=== PATIENT | female | born 1980 | race Caucasian/White ===

== ENCOUNTER → 2016-11-04 | Outpatient (CLI) | payer BC ==
[2016-11-04 11:25] LABS: Basophils % (A) 0 %; CHCM 34.1; Eosinophils # (A) 0.2 k/uL (0-0.7); Eosinophils % (A) 3 %; HCT 39.1 % (34.0-46.0); HDW 2.59; HGB 13.1 gm/dL (11.4-16.0); Luc # (Auto) 0.06; Luc % (Auto) 1; Lymphocytes # (A) 1.4 k/uL (1.0-4.8); Lymphocytes % (A) 25 %; MCH 27.6 pg (25.0-35.0); MCHC 33.4 g/dL (31.0-37.0); MCV 82.6 fL (80.0-100.0); Mean Platelet Volume 8.6; Monocytes # (A) 0.3 k/uL (0-1.0); Monocytes % (A) 6 %; Neutrophils # (A) 3.8 k/uL (1.3-7.7); Neutrophils % (A) 66 %; RBC 4.74 m/uL (3.80-5.40); RDW 14.1 % (11.5-15.5); WBC 5.7 k/uL (3.8-10.6); WBC (Perox) 5.71
[2016-11-04 11:40] LABS: ALT 25 U/L (9-52); AST 17 U/L (14-36); Alkaline Phosphatase 41 U/L (38-126); Anion Gap 11 mmol/L; Blood Urea Nitrogen 14 mg/dL (7-17); Calcium 9.7 mg/dL (8.4-10.2); Carbon Dioxide 27 mmol/L (22-30); Chloride 103 mmol/L (98-107); Cholesterol 176 mg/dL (<200); Glucose 94 mg/dL (74-99); HDL Cholesterol 100 mg/dL (40-60); Non-African American GFR(MDRD) >60 (>60 ml/min/1.73 sqM); Potassium 4.8 mmol/L (3.5-5.1); Sodium 141 mmol/L (137-145); Total Bilirubin 0.4 mg/dL (0.2-1.3); Total Protein 7.4 g/dL (6.3-8.2)
== END | disposition home or self-care (01) ==
LOC: LABWHC1 11:03
PROVIDERS: ATTEND Family Medicine
DX: Z00.00 Encounter for general adult medical examination without abnormal findings (principal)
CPT/HCPCS: 36415; 80053; 80061; 82306; 84443; 85025

== ENCOUNTER → 2018-03-01 | Outpatient (CLI) | payer BC ==
[2018-03-01 15:43] LABS: Basophils % (A) 0 %; Eosinophils # (A) 0.1 k/uL (0-0.7); Eosinophils % (A) 2 %; HCT 35.6 % (34.0-46.0); HGB 11.6 gm/dL (11.4-16.0); Lymphocytes % (A) 18 %; MCH 26.7 pg (25.0-35.0); MCHC 32.5 g/dL (31.0-37.0); MCV 82.2 fL (80.0-100.0); Mean Platelet Volume 7.5; Monocytes # (A) 0.3 k/uL (0-1.0); Monocytes % (A) 6 %; Neutrophils # (A) 3.9 k/uL (1.3-7.7); Neutrophils % (A) 72 %; Platelet Count 222 k/uL (150-450); RBC 4.33 m/uL (3.80-5.40); RDW 13.3 % (11.5-15.5); WBC 5.5 k/uL (3.8-10.6)
[2018-03-01 15:58] LABS: Anion Gap 7 mmol/L; Blood Urea Nitrogen 19 mg/dL (7-17); Carbon Dioxide 24 mmol/L (22-30); Chloride 109 mmol/L (98-107); Glucose 92 mg/dL (74-99); Potassium 4.7 mmol/L (3.5-5.1); Sodium 140 mmol/L (137-145)
== END ==
LOC: LABPAT 14:51
PROVIDERS: ATTEND Obstetrics & Gynecology Obstetrics
DX: Z01.812 Encounter for preprocedural laboratory examination (principal); N92.0 Excessive and frequent menstruation with regular cycle; N94.6 Dysmenorrhea, unspecified
CPT/HCPCS: 36415; 80051; 82565; 82947; 84520; 85025; 86850; 86900; 86901; 87086

== ENCOUNTER 2018-03-09 06:12 | Day surgery (SDC) | payer BC ==
--- NOTE | 2018-03-04 17:02 | HP ---
HISTORY AND PHYSICAL DATE OF SURGERY: 03/09/2018 This is a 37-year-old 1, para 2 with known history of menorrhagia, progressive dysmenorrhea and failed medical treatment. PAST MEDICAL HISTORY: None. PAST SURGICAL HISTORY: None. MEDICATIONS: She is on a [place] vitamin. ALLERGY LIST: NO KNOWN DRUG ALLERGIES. FAMILY HISTORY: Noncontributory. 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 As stated above, she is a G1, P2 with a twin vaginal delivery in 2004. She states her menstrual cycles are slightly irregular. They are every month, but occasionally she will skip up to 2 months. They do last 3 days and are heavy in nature, and she reports dysmenorrhea associated with her cycles. She is sexually active with one partner and using a vasectomy for contraception. REVIEW OF SYSTEMS: She denies fevers, chills or body aches. She denies history of prior headaches. She denies nausea, vomiting, diarrhea, constipation. Genitourinary: She notes slightly irregular menses, heavy in nature, with clots and dysmenorrhea that is worsening. She denies urinary urgency, frequency or dysuria. She denies history of anxiety or depression. PHYSICAL EXAMINATION: In general, this is a well-nourished, well-developed, alert female in no acute distress. Her head is noted to be normocephalic, atraumatic. Her lungs are noted to be clear to auscultation bilaterally. CARDIOVASCULAR: Regular rate and rhythm. Her abdominal exam is nontender to palpation with no masses. GENITOURINARY: She has external genitalia that are normal in appearance for age. Vagina has no discharge. The bladder is nontender. The uterus is normal in size. Her recent Pap was negative, with negative HPV in addition. ASSESSMENT: 1. Menorrhagia. 2. Dysmenorrhea. PLAN: The patient is counseled on options for treatments, given she has failed medical treatment with oral contraceptive pills. She wishes definitive treatment with hysterectomy and ovarian conservation. Risks were reviewed in detail, including but not limited to infection, bleeding, damage to bladder, bowel, ureteric or other pelvic structures. The patient states understanding of these risks and wishes to proceed. The patient is scheduled for robotic-assisted vaginal hysterectomy with diagnostic cystoscopy, possible open procedure to complete procedure, on March 09. MMODL / IJN: [id number] /
[2018-03-05 13:38] VITALS: BMI 23.0
[~2018-03-09 06:12] MED LIST: ACETAMINOPHEN IV (For NPO) 100 ML IVPB ONE; ceFAZolin IN SWFI 2 GM/20 ML SYRINGE IVP ONE
[2018-03-09] MEDS ORDERED: LIDOCAINE 1% 20 ML VIAL (10MG/ML) FOR IV START INTRADERMA ONE (06:45)
[2018-03-09] MEDS ORDERED: HYDROmorphone 0.5 MG/0.5 ML SYRINGE IVP PRN (06:47)
[2018-03-09] MEDS ORDERED: DEXAMETHASONE SOD PHOSPHATE 10 MG/ML 1 ML VIAL IV ONE (06:47)
[2018-03-09] MEDS ORDERED: ONDANSETRON 4 MG/2 ML VIAL IVP ONE (06:47)
[2018-03-09] MEDS ORDERED: LIDOCAINE 1% 20 ML VIAL (10MG/ML) FOR IV START INTRADERMA PRN (06:47)
[2018-03-09] MEDS ORDERED: SCOPOLAMINE 1.5MG/72HR PATCH TRANSDERM ONE (06:47)
[2018-03-09] MEDS ORDERED: LACTATED RINGERS 1,000 ML IV SCH (07:00)
[2018-03-09] MEDS ORDERED: LACTATED RINGERS 1,000 ML IV ONE ×3 (07:01→10:32)
[2018-03-09] MEDS ORDERED: Acetaminophen-Codeine 300-30mg TAB PO PRN ×2 (07:39)
[2018-03-09] MEDS ORDERED: ONDANSETRON 4 MG/2 ML VIAL IVP PRN (07:39)
[2018-03-09] MEDS ORDERED: IBUPROFEN IV 800 MG in SODIUM CHLORIDE 0.9% 250 ML IV ONE (07:41)
[2018-03-09] MEDS ORDERED: GLYCOPYRROLATE 0.2 MG/ML 2 ML VIAL ONE (07:46)
[2018-03-09] MEDS ORDERED: NEOSTIGMINE 1 MG/ML 10 ML VIAL ONE (07:46)
[2018-03-09] MEDS ORDERED: fentaNYL (PF) 50 MCG/ML 2 ML AMP ONE (07:46)
[2018-03-09] MEDS ORDERED: PROPOFOL 10 MG/ML 20 ML VIAL IV ONE (07:46)
[2018-03-09] MEDS ORDERED: SUCCINYLCHOLINE CHLORIDE 100 MG/5 ML SYR IV ONE (07:46)
[2018-03-09] MEDS ORDERED: ROCURONIUM BROMIDE 10 MG/ML 10 ML VIAL IV ONE (07:46)
[2018-03-09] MEDS ORDERED: HYDROmorphone (PF) 1 MG/ML ONE (07:46)
[2018-03-09] MEDS ORDERED: PHENYLEPHRINE-0.9% NACL SYG 1 MG/10 ML SYRINGE ONE (07:46)
[2018-03-09] MEDS ORDERED: MIDAZOLAM 2 MG/2 ML VIAL ONE (07:46)
[2018-03-09] MEDS ORDERED: LIDOCAINE 1% INJ 10MG/ML (20 ML MDV) ONE (07:46)
[2018-03-09] MEDS ORDERED: BUPIVACAINE (PF) 0.25% 30 ML VIAL SQ ONE ×2 (08:26)
--- NOTE | 2018-03-09 09:59 | P.OP ---
Date of Procedure: 03/09/18 Preoperative Diagnosis: Menorrhagia, dysmenorrhea, failed medical treatment. Postoperative Diagnosis: Same Procedure(s) Performed: Robotic cyst vaginal hysterectomy, diagnostic cystoscopy Anesthesia: ARINAA Surgeon: Lissette Cummings Mechatronics Technologist #1: Ange Malagon Estimated Blood Loss (ml): 25 IV fluids (ml): 1,200 Urine output (ml): 100 Pathology: other (Uterus) Condition: stable Disposition: PACU Indications for Procedure: Menorrhagia, dysmenorrhea failed medical treatment Operative Findings: Bulky globular uterus normal ovaries bilaterally suspicion for endometriosis with pelvic scarring noted Description of Procedure: Patient was seen in the preoperative area and informed consent was obtained once again the risks were reviewed with patient including but not limited to infection, bleeding, damage to bladder, bowel, ureteric, other pelvic structures. The risks of open surgery were discussed in addition. All questions were answered patient stated understanding and wished to proceed. Patient was seen in the operating suite where general anesthesia was obtained without difficulty by the anesthesia department. She was then prepped and draped in the normal sterile fashion in the dorsal lithotomy position. A Mahan catheter was then placed under sterile technique. A weighted speculum was placed in the posterior vaginal vault and the anterior lip of the cervix is visualized and grasped with a single-tooth tenaculum. The endocervical canal was then dilated and the uterus then sounded to 9 cm of uterine manipulator was then advanced into the uterus as a means to manipulate the uterus throughout the procedure. The cervical cap was then placed snugly against the cervix. All instruments were then removed from the patient's vaginal vault. Attention was then turned to the patient's abdomen where approximately 2 fingerbreadths above the umbilicus a small skin incision is made through this incision the naresis using it was deemed appropriate position with a drop of CO2 pressure and the insufflation of CO2 gas CO2 insufflation was allowed to occur. Approximately 3 L of gas were used to obtain pneumoperitoneum. At this time the incision was elongated 12 mm and a 12 mm trocar and sleeve is placed through the incision and toward the pneumoperitoneum under direct visualization of the laparoscope. The trocar was removed with the sheath remaining in place and the above noted findings were visualized. The additional port sites and then placed a 10 cm lateral and 3 cm inferior midline port 8 mm operative ports that she machine. In the left upper quadrant a 12 mm trocar and sleeve is placed under direct visualization. The da Mechelle was undocked in the usual fashion. The operative arms were now placed. In the right upper The monopolar scissors was placed in the left operative arm the bipolar forceps is placed left fallopian tube was then grasped coagulated and transected. The uterine ovarian ligament was regular distally and proximally divided hemostasis was noted. The round ligament was then coagulated distally and proximally divided. The bladder flap was then created from the left using sharp and blunt dissection. Attention was then turned to the patient's right fallopian tube which was grasped with the bipolar forceps and transected with good hemostasis being noted. Utero-ovarian ligament was greater than distally and proximally and divided. The round ligament was then coagulated distally and proximally and divided. The bladder flap from the right was then created using sharp and blunt dissection. The ascending branch the uterine artery was then visualized coagulated distally and proximally and divided. This was then repeated on the opposite side. At this point the only remaining attachment was the vaginal attachment therefore a colpotomy incision was made in a circumferential fashion. The vaginal cuff was noted to be hemostatic after the uterus was delivered through the vaginal opening. The vaginal cuff was then closed with [id number] sutures of 0 Vicryl. Approximately 5 sutures were used to obtain closure. The pelvis then copiously irrigated hemostasis was appreciated. The pelvis was inspected and normal in nature. The appendix was visualized and normal. Both ovaries were inspected and normal-appearing once again with no bleeding noted. At this time the da Mechelle robot was undocked and all instructed to remove the patient's abdomen. Attention was then turned the patient's Mahan catheter which was removed without difficulty noting clear yellow urine in the catheter tubing. The cystoscopy was then performed. The scope was placed through the urethra for the bladder bladder bubbles noted both urolithiasis were noted recently clear yellow urine. Mahan catheter was then replaced. Attention was then turned the patient's abdomen where the skin incisions were closed with 4-0 Vicryl in a subcuticular fashion. Steri-Strips and sterile dressings were applied as needed. All counts are correct 2 patient tolerated procedure well and was taken to the recovery room awake and in stable condition.
[2018-03-09] MEDS ORDERED: MEPERIDINE 50 MG/ML SYRINGE IVP ONE (10:28)
[2018-03-09] MEDS: IBUPROFEN 600 MG TAB PO PRN (19:49)
[2018-03-10] MEDS: IBUPROFEN 600 MG TAB PO PRN (03:20)
[2018-03-10 07:56] VITALS: BP 96/54; PULSE 61; RESP 14; TEMP 97.8
[2018-03-10 08:04] LABS: Basophils % (A) 0 %; Eosinophils # (A) 0.1 k/uL (0-0.7); Eosinophils % (A) 1 %; HCT 31.7 % (34.0-46.0); HGB 10.5 gm/dL (11.4-16.0); Lymphocytes # (A) 1.1 k/uL (1.0-4.8); Lymphocytes % (A) 12 %; MCH 27.3 pg (25.0-35.0); MCHC 33.1 g/dL (31.0-37.0); MCV 82.5 fL (80.0-100.0); Mean Platelet Volume 8.4; Monocytes # (A) 0.4 k/uL (0-1.0); Monocytes % (A) 5 %; Neutrophils # (A) 7.5 k/uL (1.3-7.7); Neutrophils % (A) 82 %; Platelet Count 181 k/uL (150-450); RBC 3.84 m/uL (3.80-5.40); RDW 13.8 % (11.5-15.5); WBC 9.1 k/uL (3.8-10.6)
--- NOTE | 2018-03-10 08:32 | P.DS ---
Providers Date of admission: 03/09/2018 Expected date of discharge: 03/10/18 Attending physician: Lissette Cummings Primary care physician: Stated None - Discharge Diagnosis(es) (1) Dysmenorrhea Current Visit: Yes Status: Acute (2) Menorrhagia Current Visit: Yes Status: Acute Hospital Course: This is a 38-year-old female with complaints of severe dysmenorrhea, menorrhagia despite medical treatment. Patient wishes definitive treatment and given her significant dysmenorrhea options were reviewed and patient elected definitive treatment with robotic-assisted vaginal hysterectomy, patient was taken to the operating room yesterday surgery was performed without difficulty. For further details on the procedure please see the operative report. Patient 's postoperative course has been uneventful. She is ambulating and voiding without difficulty. She is tolerating a regular diet without nausea or vomiting. She states her pain is well-controlled with Motrin 600 mg. She denies vaginal bleeding and wishes discharge home. Patient Condition at Discharge: Good Plan - Discharge Summary Discharge Rx Participant: No New Discharge Prescriptions: No Action Ibuprofen [Motrin] 800 mg PO Q8HR PRN PRN Reason: Pain Pedi Multivit No.25/Folic Acid [Flintstones Multivit Chew Tab] 2 tab PO DAILY Acetaminophen [Children's Tylenol] 160 mg PO DIRECTED PRN PRN Reason: Pain Discharge Medication List Acetaminophen [Children's Tylenol] 160 mg PO DIRECTED PRN 03/05/18 [History] Ibuprofen [Motrin] 800 mg PO Q8HR PRN 03/05/18 [History] Pedi Multivit No.25/Folic Acid [Flintstones Multivit Chew Tab] 2 tab PO DAILY [History] Follow up Appointment(s)/Referral(s): Lissette Cummings DO [Doctor of Osteopathic Medicine] - 2 Weeks Patient Instructions/Handouts: *Surgery [facility] - Scopalamine Patch Instructions, Laparoscopic Hysterectomy (DC), Laparoscopic Hysterectomy (GEN) Activity/Diet/Wound Care/Special Instructions: No tub baths or intercourse until 6 weeks . Discharge Disposition: HOME SELF-CARE
[2018-03-10] MEDS ORDERED: SIMETHICONE 80 MG CHEWABLE PO SCH ×2 (09:00)
== END 2018-03-10 08:52 | disposition home or self-care (01) ==
LOC: OR 06:12 → 4FBP 09:43 → OR 03-10 08:52
PROVIDERS: ATTEND Obstetrics & Gynecology Obstetrics
DX: N92.0 Excessive and frequent menstruation with regular cycle (principal); N94.6 Dysmenorrhea, unspecified; Z79.1 Long term (current) use of non-steroidal anti-inflammatories (NSAID); G43.909 Migraine, unspecified, not intractable, without status migrainosus; Z87.891 Personal history of nicotine dependence; Z88.8 Allergy status to other drugs, medicaments and biological substances
CPT/HCPCS: 58552; S2900; 81025; 85025; 86850; 86900; 86901; 88307

== ENCOUNTER 2018-05-03 19:52 | Inpatient (IN) | payer BC ==
[2018-05-03] MEDS ORDERED: KETOROLAC 30 MG/ML 1 ML VIAL IVP STA (21:36)
--- NOTE | 2018-05-03 22:02 | ED ---
General Adult HPI - General Chief complaint: Vaginal Bleeding Stated complaint: hysterectomy 8 weeks ago & having complications Time Seen by Provider: 05/03/18 21:17 Source: patient Mode of arrival: ambulatory Limitations: no limitations - History of Present Illness Initial comments: 38-year-old female patient presents to the emergency department today for evaluation of lower abdominal pain and vaginal bleeding and discharge. Patient is 8 weeks status post transvaginal hysterectomy with Dr. Cummings. States that she did have a follow-up appointment today with her tire debeader who performed a pelvic exam and cleared her to return to sexual intercourse. Patient states when she got home her and her were having sex when she had onset of pain and bleeding. Patient states this was bright red blood. States that she also had onset of pain to the lower abdomen. States then she started to feel as if her abdomen was filling with air and she felt discomfort in her shoulders similar to what you would have with a laparoscopic surgery. Patient states the bleeding did stop after a short time, but when she went to use the bathroom she had a large amount of clear fluid from the vagina. States that she is having increasing pain to the pelvis currently. Denies any current vaginal bleeding or discharge. Denies any fevers or chills with this. She states that she has been nauseated but has not vomited. States that she has been passing gas. Patient denies any recent rash, shortness breath, chest pain, diarrhea, constipation, back pain, numbness, tingling, dizziness, weakness, hematuria, dysuria, urinary urgency, urinary frequency, headache, visual changes, or any other complaints. - Related Data Allergies Allergy/AdvReac Type Severity Reaction Status Date / Time epinephrine Allergy Rapid Verified 05/03/18 21:59 Heart Rate/shakes pseudoephedrine Allergy Rapid Verified 05/03/18 21:59 [From [facility]] Heart Rate/shakes Review of Systems ROS Statement: Those systems with pertinent positive or pertinent negative responses have been documented in the HPI. ROS Other: All systems not noted in ROS Statement are negative. Past Medical History Past Medical History: Skin Disorder Additional Past Medical History / Comment(s): migraines, low blood pressure, "sensitive stomach", frequent diarrhea, rash on back of both legs, abdominal cramping History of Any Multi-Drug Resistant Organisms: None Reported Past Surgical History: Hysterectomy Additional Past Surgical History / Comment(s): oral sugery Past Anesthesia/Blood Transfusion Reactions: Motion Sickness Past Psychological History: No Psychological Hx Reported Smoking Status: Former smoker Past Alcohol Use History: None Reported Past Drug Use History: None Reported - Past Family History Mother Family Medical History: No Reported History General Exam Limitations: no limitations General appearance: alert, in no apparent distress, other (Physical well- developed, well-nourished adult female patient in no acute distress. Vital signs upon presentation are temperature 98.6F, pulse 79, respirations 18, blood pressure 101/62, pulse ox 100% on room air.) Eye exam: Present: normal appearance, PERRL, EOMI. Absent: scleral icterus, conjunctival injection, periorbital swelling ENT exam: Present: normal exam, normal oropharynx, mucous membranes moist Respiratory exam: Present: normal lung sounds bilaterally. Absent: respiratory distress, wheezes, rales, rhonchi, stridor Cardiovascular Exam: Present: regular rate, normal rhythm, normal heart sounds. Absent: systolic murmur, diastolic murmur, rubs, gallop, clicks GI/Abdominal exam: Present: soft, tenderness (Suprapubic tenderness, left lower quadrant tenderness. ), normal bowel sounds. Absent: distended, guarding, rebound, rigid External exam: Present: normal external exam Speculum exam: Present: other (cervix surgically absent, surgical changes noted, no obvious signs of dehisence. There is light brown vaginal discharge, no active bleeding noted. ) Neurological exam: Present: alert, oriented X3, CN II-XII intact Psychiatric exam: Present: normal affect, normal mood Skin exam: Present: warm, dry, intact, normal color. Absent: rash Course Vital Signs 05/03/18 05/03/18 20:13 22:00 Temperature 98.6 F Pulse Rate 79 86 Respiratory 18 16 Rate Blood Pressure 101/62 126/89 O2 Sat by Pulse 100 99 Oximetry Medical Decision Making - Medical Decision Making 38-year-old female patient presents the emergency department today for evaluation of pelvic pain, vaginal bleeding, and feeling of abdominal bloating. Patient had onset of symptoms after sexual intercourse. She is 8 weeks status post transvaginal hysterectomy. Physical examination did reveal suprapubic tenderness. Pelvic exam was obtained and did reveal postsurgical changes with absent cervix. I see no obvious dehiscence or openings. Labs reviewed and does reveal white blood cell count of 11.0, urinalysis shows trace protein, small amount of blood, moderate leukocyte esterase, 11 red blood cells, 20 white blood cells, and many mucous. This was sent for culture. CT of the abdomen and pelvis was obtained. This did show free intraperitoneal air. The case was discussed with the patient's surgeon Dr. Cummings, patient will be started on antibiotics and admitted to the hospital for further evaluation. Did discuss findings, results, and plan with the patient, she is agreeable. - Lab Data Result diagrams: 05/03/18 22:00 05/03/18 22:00 Lab Results 05/03/18 05/03/18 05/03/18 Range/Units 22:00 22:00 22:00 WBC 11.0 H (3.8-10.6) k/uL RBC 4.36 (3.80-5.40) m/uL Hgb 11.9 (11.4-16.0) gm/dL Hct 35.2 (34.0-46.0) % MCV 80.7 (80.0-100.0) fL MCH 27.4 (25.0-35.0) pg MCHC 34.0 (31.0-37.0) g/dL RDW 13.4 (11.5-15.5) % Plt Count 227 (150-450) k/uL Neutrophils % 81 % Lymphocytes % 14 % Monocytes % 3 % Eosinophils % 2 % Basophils % 0 % Neutrophils # 8.9 H (1.3-7.7) k/uL Lymphocytes # 1.5 (1.0-4.8) k/uL Monocytes # 0.3 (0-1.0) k/uL Eosinophils # 0.2 (0-0.7) k/uL Basophils # 0.0 (0-0.2) k/uL Sodium 142 (137-145) mmol/L Potassium 4.2 (3.5-5.1) mmol/L Chloride 110 H (98-107) mmol/L Carbon Dioxide 25 (22-30) mmol/L Anion Gap 7 mmol/L BUN 19 H (7-17) mg/dL Creatinine 0.75 (0.52-1.04) mg/dL Est GFR (CKD-EPI)AfAm >90 (>60 ml/min/1.73 sqM) Est GFR (CKD-EPI)NonAf >90 (>60 ml/min/1.73 sqM) Glucose 85 (74-99) mg/dL Calcium 9.1 (8.4-10.2) mg/dL Total Bilirubin 0.3 (0.2-1.3) mg/dL AST 18 (14-36) U/L ALT 17 (9-52) U/L Alkaline Phosphatase 41 (38-126) U/L Total Protein 6.9 (6.3-8.2) g/dL Albumin 4.2 (3.5-5.0) g/dL Amylase 47 (30-110) U/L Lipase 94 (23-300) U/L Urine Color Yellow Urine Appearance Clear (Clear) Urine pH 6.0 (5.0-8.0) Ur Specific [place] 1.022 (1.001-1.035) Urine Protein Trace H (Negative) Urine Glucose (UA) Negative (Negative) Urine Ketones Negative (Negative) Urine Blood Small H (Negative) Urine Nitrite Negative (Negative) Urine Bilirubin Negative (Negative) Urine Urobilinogen <2.0 (<2.0) mg/dL Ur Leukocyte Esterase Moderate H (Negative) Urine RBC 11 H (0-5) /hpf Urine WBC 28 H (0-5) /hpf Ur Squamous Epith Cells 1 (0-4) /hpf Urine Mucus Many H (None) /hpf - Radiology Data Radiology results: report reviewed, image reviewed CT of the abdomen and pelvis with contrast was obtained. Report was reviewed in its entirety. Impression by Dr. Campo shows free intraperitoneal air raising the concern for hollow viscus rupture sacral of peptic ulcer disease. Indeterminate lung base nodules. Disposition Clinical Impression: Free intraperitoneal air Disposition: ADMITTED IP TO THIS [facility] Condition: Serious Referrals: None,Stated [Primary Care Provider] - 1-2 days Decision to Admit Reason: Admit from EC Decision Date: 05/04/18 Decision Time: 00:37
[2018-05-03 22:21] LABS: Basophils % (A) 0 %; Eosinophils # (A) 0.2 k/uL (0-0.7); Eosinophils % (A) 2 %; HCT 35.2 % (34.0-46.0); HGB 11.9 gm/dL (11.4-16.0); Lymphocytes # (A) 1.5 k/uL (1.0-4.8); Lymphocytes % (A) 14 %; MCH 27.4 pg (25.0-35.0); MCV 80.7 fL (80.0-100.0); Mean Platelet Volume 7.1; Monocytes # (A) 0.3 k/uL (0-1.0); Monocytes % (A) 3 %; Neutrophils # (A) 8.9 k/uL (1.3-7.7); Neutrophils % (A) 81 %; Platelet Count 227 k/uL (150-450); RBC 4.36 m/uL (3.80-5.40); RDW 13.4 % (11.5-15.5)
[2018-05-03 22:32] LABS: Appearance,Urine Clear (Clear); Bilirubin,Urine Negative (Negative); Blood,Urine Small (Negative); Color,Urine Yellow; Glucose,Urine (UA) Negative (Negative); Ketones,Urine Negative (Negative); Leukocyte Esterase,Urine Moderate (Negative); Mucus,Urine Many /hpf; Nitrite,Urine Negative (Negative); Protein,Urine Trace (Negative); RBC,Urine 11 /hpf (0-5); Specific Gravity,Urine 1.022 (1.001-1.035); Squamous Epithelial Cell,Urine 1 /hpf (0-4); Urobilinogen,Urine <2.0 mg/dL (<2.0); WBC,Urine 28 /hpf (0-5)
[2018-05-03 22:37] LABS: ALT 17 U/L (9-52); AST 18 U/L (14-36); Albumin 4.2 g/dL (3.5-5.0); Alkaline Phosphatase 41 U/L (38-126); Amylase 47 U/L (30-110); Anion Gap 7 mmol/L; Blood Urea Nitrogen 19 mg/dL (7-17); Calcium 9.1 mg/dL (8.4-10.2); Carbon Dioxide 25 mmol/L (22-30); Chloride 110 mmol/L (98-107); Glucose 85 mg/dL (74-99); Lipase 94 U/L (23-300); Potassium 4.2 mmol/L (3.5-5.1); Sodium 142 mmol/L (137-145); Total Bilirubin 0.3 mg/dL (0.2-1.3); Total Protein 6.9 g/dL (6.3-8.2)
--- NOTE | 2018-05-03 23:48 | CT ---
ADDENDUM - Added by Ric Campo M.D. on 05/04/2018 1:01 AM (-07:00) Patient also had recent hysterectomy within the past 2 months. The free air could also be from a new vaginal cuff injury. EXAM: CT Abdomen and Pelvis With Intravenous Contrast CLINICAL HISTORY: ITS.REASON CT Reason: Pain TECHNIQUE: Axial computed tomography images of the abdomen and pelvis with intravenous contrast. CTDI is 12.6 mGy and DLP is 607.50 mGy-cm. This CT exam was performed using one or more of the following dose reduction techniques: automated exposure control, adjustment of the mA and/or kV according to patient size, and/or use of iterative reconstruction technique. COMPARISON: No relevant prior studies available. FINDINGS: Lung bases: Incompletely imaged 5 mm groundglass nodule involving the inferior lingula. Few additional small indeterminate nodules involving the posterior aspect of the right and left lower lobe. ABDOMEN: Liver: Unremarkable. No mass. Gallbladder and bile ducts: See below. Pancreas: Pancreas and gallbladder are unremarkable. No ductal dilation. Spleen: Unremarkable. No splenomegaly. Adrenals: Unremarkable. No mass. Kidneys and ureters: No obstructive uropathy. Stomach and bowel: Consider hollow viscus rupture there are no recent procedures, which may have introduced this intraperitoneal air. Peptic ulcer disease would also be in the differential. PELVIS: Appendix: No appendicitis. No colitis, diverticulitis or bowel obstruction. Bladder: Unremarkable. No mass. Reproductive: Unremarkable as visualized. ABDOMEN and PELVIS: Intraperitoneal space: Small moderate amount of free intraperitoneal air seen anteriorly. 2.2 cm ovoid circumscribed lesion involving the right ovary. This is likely a dominant follicular cyst. No adnexal masses. No free fluid. Bones/joints: No acute fracture. No dislocation. Soft tissues: Unremarkable. Vasculature: Unremarkable. No abdominal aortic aneurysm. Lymph nodes: Unremarkable. No enlarged lymph nodes. IMPRESSION: Free intraperitoneal air raising the concern for hollow viscus rupture or sequelae of peptic ulcer disease. Indeterminate lung base nodules. <MYCVCSECTION> [employer] 05/03/18 23:50 Call Doctor Regarding Above results, called ADAM Styles on 05/03 23:49 (-04:00) 05/04/18 01:[address] Cummings on 05/04 00:57 (-04:00)
[2018-05-04] MEDS ORDERED: AMPICILLIN-SULBACTAM 3 GM in SODIUM CHLORIDE 0.9% 100 ML IVPB STA (00:29)
[2018-05-04] MEDS ORDERED: metroNIDAZOLE-NS PMX 500 MG in SALINE 1 100ML.BAG IVPB STA (00:29)
[2018-05-04] MEDS ORDERED: MORPHINE SULFATE 4 MG/ML SYRINGE IV PRN (00:32)
[2018-05-04] MEDS ORDERED: ONDANSETRON 4 MG/2 ML VIAL IVP PRN (00:32)
[2018-05-04] MEDS ORDERED: NALOXONE 0.4 MG/ML 1 ML VIAL IV PRN (00:32)
[2018-05-04] MEDS: SODIUM CHLORIDE 0.9% 1,000 ML IV SCH ×2 (00:48→18:49)
[2018-05-04] MEDS ORDERED: ACETAMINOPHEN TAB 325 MG TAB PO PRN (01:50)
--- NOTE | 2018-05-04 01:51 | P.HPOB ---
History of Present Illness H&P Date: 05/04/18 Chief Complaint: Vaginal cuff dehiscence This is a very pleasant 38-year-old female that underwent robotic cyst vaginal hysterectomy presently 8 weeks ago. Patient was seen in the office today vaginal cuff was inspected and felt to be intact. Patient left the office and went home had intercourse and noted a sudden onset of pain followed by bloating shoulder pain and belching. Patient then called the office complaining of some vaginal bleeding at the time. Upon returning the phone call the patient patient states bleeding had stopped but clear discharge had now started once she was on the toilet. Patient denies any changes in bowel movements of the recent few weeks. Patient actually states her problems have improved since surgery. She denies any urinary complaints. She denies fevers or chills, nausea vomiting. Review of Systems Constitutional: Denies chills, Denies fatigue, Denies fever Ears, nose, mouth and throat: Denies headache Cardiovascular: Denies edema Respiratory: Denies cough, Denies dyspnea Gastrointestinal: Reports abdominal pain, Reports belching, Reports bloating, Denies constipation, Denies diarrhea, Denies nausea, Denies vomiting Genitourinary: Denies urgency Past Medical History Past Medical History: Skin Disorder Additional Past Medical History / Comment(s): migraines, low blood pressure, "sensitive stomach", frequent diarrhea, rash on back of both legs, abdominal cramping History of Any Multi-Drug Resistant Organisms: None Reported Past Surgical History: Hysterectomy Additional Past Surgical History / Comment(s): oral sugery Past Anesthesia/Blood Transfusion Reactions: Motion Sickness Past Psychological History: No Psychological Hx Reported Smoking Status: Former smoker Past Alcohol Use History: None Reported Past Drug Use History: None Reported - Past Family History Mother Family Medical History: No Reported History Medications and Allergies Allergies Allergy/AdvReac Type Severity Reaction Status Date / Time epinephrine Allergy Rapid Verified 05/03/18 21:59 Heart Rate/shakes pseudoephedrine Allergy Rapid Verified 05/03/18 21:59 [From Sudafed] Heart Rate/shakes Exam Osteopathic Statement: *. No significant issues noted on an osteopathic structural exam other than those noted in the History and Physical/Consult. Vital Signs Temp Pulse Resp BP Pulse Ox 05/04/18 00:58 98.5 F 84 20 126/72 98 05/03/18 22:00 86 16 126/89 99 05/03/18 20:13 98.6 F 79 18 101/62 100 Intake and Output 05/03/18 05/03/18 05/04/18 14:59 22:59 06:59 Other: Weight 59.239 kg Targeted physical exam was performed on this patient in general this a well- nourished well-developed female in no acute distress. Patient is noted to have nonlabored breathing heart is known to have a regular rate and rhythm. Her abdomen is soft with some tenderness in the pelvic area. On vaginal exam the vaginal cuff is noted to have a 1-2 cm opening with no bowel evisceration noted. Peritoneum actually feels closed. There is no bleeding. But serous fluid is noted in the vaginal vault. On bimanual exam about a fingertip size defect is noted within the vaginal cuff which is nontender on palpation. Results Result Diagrams: 05/03/18 22:00 05/03/18 22:00 Abnormal Lab Results - Last 24 Hours (Table) 05/03/18 05/03/18 05/03/18 Range/Units 22:00 22:00 22:00 WBC 11.0 H (3.8-10.6) k/uL Neutrophils # 8.9 H (1.3-7.7) k/uL Chloride 110 H (98-107) mmol/L BUN 19 H (7-17) mg/dL Urine Protein Trace H (Negative) Urine Blood Small H (Negative) Ur Leukocyte Esterase Moderate H (Negative) Urine RBC 11 H (0-5) /hpf Urine WBC 28 H (0-5) /hpf Urine Mucus Many H (None) /hpf Assessment and Plan (1) Vaginal cuff dehiscence Current Visit: Yes Status: Acute Code(s): T81.31XA - DISRUPTION OF EXTERNAL OPERATION (SURGICAL) WOUND, NEC, INIT SNOMED Code(s): 52500349 Plan: We'll plan repair of vaginal cuff dehiscence tomorrow after IV antibiotics and IV fluids. Procedure is reviewed with the patient in detail, all questions are answered. Did discuss the patient possibility of a diagnostic laparoscopy in addition given her symptoms. I highly doubt bowel injury at this time as she is 8 weeks postoperative from a robotic cyst vaginal hysterectomy. We will observe her overnight and at her on for surgical closure in the morning.
[2018-05-04 02:40] VITALS: BMI 23.2
[2018-05-04] MEDS: metroNIDAZOLE-NS PMX 500 MG in SALINE 1 100ML.BAG IVPB SCH ×3 (07:27→19:41)
[2018-05-04 09:03] LABS: HCT 32.1 % (34.0-46.0); HGB 10.5 gm/dL (11.4-16.0); MCH 26.5 pg (25.0-35.0); MCHC 32.7 g/dL (31.0-37.0); MCV 80.9 fL (80.0-100.0); Mean Platelet Volume 8.8; Platelet Count 170 k/uL (150-450); RBC 3.97 m/uL (3.80-5.40); RDW 13.7 % (11.5-15.5); WBC 7.1 k/uL (3.8-10.6)
[2018-05-04 09:36] LABS: ALT 26 U/L (9-52); AST 13 U/L (14-36); Albumin 3.8 g/dL (3.5-5.0); Alkaline Phosphatase 41 U/L (38-126); Anion Gap 5 mmol/L; Blood Urea Nitrogen 18 mg/dL (7-17); Calcium 8.7 mg/dL (8.4-10.2); Carbon Dioxide 25 mmol/L (22-30); Chloride 111 mmol/L (98-107); Glucose 91 mg/dL (74-99); Potassium 4.1 mmol/L (3.5-5.1); Sodium 141 mmol/L (137-145); Total Bilirubin 0.8 mg/dL (0.2-1.3); Total Protein 6.4 g/dL (6.3-8.2)
[2018-05-04] MEDS ORDERED: IV FLUID CONTINUATION 1,000 ML IV ONE (11:12)
[2018-05-04] MEDS ORDERED: ACETAMINOPHEN IV (For NPO) 1,000 MG in EMPTY BAG 1 BAG IVPB ONE (11:30)
[2018-05-04] MEDS ORDERED: DEXAMETHASONE SOD PHOSPHATE 10 MG/ML 1 ML VIAL IV ONE (11:35)
[2018-05-04] MEDS ORDERED: SCOPOLAMINE 1.5MG/72HR PATCH TRANSDERM ONE (11:36)
[2018-05-04] MEDS ORDERED: LACTATED RINGERS 1,000 ML IV ONE (11:50)
[2018-05-04] MEDS ORDERED: ePHEDrine SULFATE/0.9% NACL/PF 50 MG/5 ML SYRINGE IV ONE (12:16)
[2018-05-04] MEDS ORDERED: LIDOCAINE 1% INJ 10MG/ML (20 ML MDV) ONE (12:16)
[2018-05-04] MEDS ORDERED: fentaNYL (PF) 50 MCG/ML 2 ML AMP ONE (12:16)
[2018-05-04] MEDS ORDERED: MIDAZOLAM 2 MG/2 ML VIAL ONE (12:16)
[2018-05-04] MEDS ORDERED: PROPOFOL 10 MG/ML 20 ML VIAL IV ONE (12:16)
--- NOTE | 2018-05-04 12:16 | P.GSCN ---
History of Present Illness Consult date: 05/04/18 Reason for Consult: Abdominal pain History of present illness: Patient presents to the ER yesterday 8 weeks post robotic-assisted vaginal hyste rectomy. She was seen by her braided rug maker yesterday on routine follow-up. At that time the patient's exam was benign. She was cleared for intercourse. Shortly thereafter the patient and her had intercourse and during the act developed abdominal discomfort and bloating along with some shoulder discomfort. She was noted to have some vaginal bleeding. Patient eventually went to the ER for evaluation. CAT scan with IV contrast showed pneumoperitoneum. No definite inflammatory changes however. Patient's white blood cell count last night was elevated at 11. Empirically she was started on antibiotics. This morning her white blood cell count is normal. No tachycardia. Low-grade fever of 99. Examination by gynecology confirms a vaginal cuff dehiscence. We were consulted to evaluate for the possibility of GI perforation. Patient says her pain today is better than it was yesterday afternoon. She is going to the OR shortly for repair vaginal cuff dehiscence vaginally. Patient actually said she felt like she was being 'pumped full of air' during the act of intercourse. Review of Systems The patient denies any acute changes in vision or hearing, no dysphagia or odynophagia, no chest pain or shortness of breath, no dysuria or hematuria, no h eadache, no runny nose, no rectal bleeding or melena, no unexplained weight loss Past Medical History Past Medical History: Skin Disorder Additional Past Medical History / Comment(s): migraines, low blood pressure, "sensitive stomach", frequent diarrhea, rash on back of both legs, abdominal cramping History of Any Multi-Drug Resistant Organisms: None Reported Past Surgical History: Hysterectomy Additional Past Surgical History / Comment(s): oral sugery Past Anesthesia/Blood Transfusion Reactions: Motion Sickness Past Psychological History: No Psychological Hx Reported Smoking Status: Former smoker Past Alcohol Use History: None Reported Additional Past Alcohol Use History / Comment(s): quit smoking 10 yrs ago, smoked from age 9, 1 PPD Past Drug Use History: None Reported - Past Family History Mother Family Medical History: No Reported History Medications and Allergies Allergies Allergy/AdvReac Type Severity Reaction Status Date / Time epinephrine Allergy Rapid Verified 05/04/18 02:40 Heart Rate/shakes pseudoephedrine Allergy Rapid Verified 05/04/18 02:40 [From [facility]] Heart Rate/shakes Surgical - Exam Vital Signs Temp Pulse Resp BP Pulse Ox 98.6 F 79 18 101/62 100 05/03/18 20:13 05/03/18 20:13 05/03/18 20:13 05/03/18 20:13 05/03/18 20:13 Abdomen: Soft, minimal distention, mild diffuse tenderness, no rebound or guarding Results - Labs 05/04/18 08:46 05/04/18 08:46 Abnormal Lab Results - Last 24 Hours (Table) 05/03/18 05/03/18 05/03/18 Range/Units 22:00 22:00 22:00 WBC 11.0 H (3.8-10.6) k/uL Hgb (11.4-16.0) gm/dL Hct (34.0-46.0) % Neutrophils # 8.9 H (1.3-7.7) k/uL Chloride 110 H (98-107) mmol/L BUN 19 H (7-17) mg/dL AST (14-36) U/L Urine Protein Trace H (Negative) Urine Blood Small H (Negative) Ur Leukocyte Esterase Moderate H (Negative) Urine RBC 11 H (0-5) /hpf Urine WBC 28 H (0-5) /hpf Urine Mucus Many H (None) /hpf 05/04/18 05/04/18 Range/Units 08:46 08:46 WBC (3.8-10.6) k/uL Hgb 10.5 L (11.4-16.0) gm/dL Hct 32.1 L (34.0-46.0) % Neutrophils # (1.3-7.7) k/uL Chloride 111 H (98-107) mmol/L BUN 18 H (7-17) mg/dL AST 13 L (14-36) U/L Urine Protein (Negative) Urine Blood (Negative) Ur Leukocyte Esterase (Negative) Urine RBC (0-5) /hpf Urine WBC (0-5) /hpf Urine Mucus (None) /hpf Microbiology - Last 24 Hours (Table) 05/03/18 22:00 Urine Culture - Preliminary Urine,Voided Diabetes panel 05/03/18 05/04/18 Range/Units 22:00 08:46 Sodium 142 141 (137-145) mmol/L Potassium 4.2 4.1 (3.5-5.1) mmol/L Chloride 110 H 111 H (98-107) mmol/L Carbon Dioxide 25 25 (22-30) mmol/L BUN 19 H 18 H (7-17) mg/dL Creatinine 0.75 0.73 (0.52-1.04) mg/dL Glucose 85 91 (74-99) mg/dL Calcium 9.1 8.7 (8.4-10.2) mg/dL AST 18 13 L (14-36) U/L ALT 17 26 (9-52) U/L Alkaline Phosphatase 41 41 (38-126) U/L Total Protein 6.9 6.4 (6.3-8.2) g/dL Albumin 4.2 3.8 (3.5-5.0) g/dL Calcium panel 05/03/18 05/04/18 Range/Units 22:00 08:46 Calcium 9.1 8.7 (8.4-10.2) mg/dL Albumin 4.2 3.8 (3.5-5.0) g/dL Pituitary panel 05/03/18 05/04/18 Range/Units 22:00 08:46 Sodium 142 141 (137-145) mmol/L Potassium 4.2 4.1 (3.5-5.1) mmol/L Chloride 110 H 111 H (98-107) mmol/L Carbon Dioxide 25 25 (22-30) mmol/L BUN 19 H 18 H (7-17) mg/dL Creatinine 0.75 0.73 (0.52-1.04) mg/dL Glucose 85 91 (74-99) mg/dL Calcium 9.1 8.7 (8.4-10.2) mg/dL Adrenal panel 05/03/18 05/04/18 Range/Units 22:00 08:46 Sodium 142 141 (137-145) mmol/L Potassium 4.2 4.1 (3.5-5.1) mmol/L Chloride 110 H 111 H (98-107) mmol/L Carbon Dioxide 25 25 (22-30) mmol/L BUN 19 H 18 H (7-17) mg/dL Creatinine 0.75 0.73 (0.52-1.04) mg/dL Glucose 85 91 (74-99) mg/dL Calcium 9.1 8.7 (8.4-10.2) mg/dL Total Bilirubin 0.3 0.8 (0.2-1.3) mg/dL AST 18 13 L (14-36) U/L ALT 17 26 (9-52) U/L Alkaline Phosphatase 41 41 (38-126) U/L Total Protein 6.9 6.4 (6.3-8.2) g/dL Albumin 4.2 3.8 (3.5-5.0) g/dL Assessment and Plan (1) Abdominal pain Narrative/Plan: Clinical scenario reviewed in detail with the patient and her family. At this time degree of suspicion regarding enteric injury remains low. Agree with plans for vaginal cuff repair to be performed vaginally. Options of diagnostic laparoscopy reviewed with the patient her family and with gynecology. At this time I am comfortable observing this patient clinically. Would continue empiric antibiotics. Begin clear liquids postoperatively. Repeat labs tomorrow. Repeat clinical exam tomorrow. If the patient continues to improve would be comfortable with plans for discharge tomorrow. Current Visit: Yes Status: Acute Code(s): R10.9 - UNSPECIFIED ABDOMINAL PAIN SNOMED Code(s): 78273016
[2018-05-04] MEDS: IBUPROFEN 600 MG TAB PO SCH ×2 (17:12→23:53)
--- NOTE | 2018-05-04 18:07 | P.OP ---
Date of Procedure: 05/04/18 Preoperative Diagnosis: vaginal cuff defect Postoperative Diagnosis: same Procedure(s) Performed: vaginal defect closure Anesthesia: MAC Surgeon: Lissette Cummings Group Therapy Counselor #1: Ange Malagon Estimated Blood Loss (ml): 5 IV fluids (ml): 200 Urine output (ml): 0 Pathology: none sent Condition: stable Disposition: PACU Indications for Procedure: This is a 38-year-old female that underwent robotic cyst vaginal hysterectomy approximate 8 weeks ago. Patient was having intercourse yesterday afternoon and noted a severe pain followed by vaginal bleeding and a gush of clear fluid. Patient subsequently noted increased abdominal bloating and shoulder pain. Patient presented to the emergency department on computed tomography scan free air was noted in the abdomen on exam the vaginal cuff that was examined the same day was noted to be slightly open with a defect in the match vaginal mucosa. No bowel was noted in the vagina or near the vaginal mucosa defect. Patient was counseled on the need for surgical repair given the free air in the abdomen and etiology from recent intercourse. Patient stated understanding and was taken to the operating room. Operative Findings: Right lateral edge cuff defect. Healthy vaginal mucosal tissue Description of Procedure: Patient was taken operating suite where general anesthesia was obtained without difficulty by the anesthesia department. She was then prepped and draped in the normal sterile fashion in dorsal lithotomy position. A sterile catheter was used to drain the bladder minimal was noted as she had voided just prior to being taken back to the operating suite. A weighted speculum was placed in the posterior vaginal vault the defect was then identified easily Allis clamps were then used to grab the corners of the vaginal mucosal defect and this was repaired with a running locked suture of 0 Vicryl. Hemostasis was appreciated. Afterwards all instruments were removed from the patient's vaginal vault hemostasis was appreciated once again all counts were correct 2 patient was taken the recovery room awake and in stable condition.
[2018-05-04 18:19] LABS: Basophils % (A) 0 %; Eosinophils # (A) 0.1 k/uL (0-0.7); Eosinophils % (A) 2 %; HCT 34.2 % (34.0-46.0); HGB 11.1 gm/dL (11.4-16.0); Lymphocytes # (A) 0.3 k/uL (1.0-4.8); Lymphocytes % (A) 4 %; MCH 26.6 pg (25.0-35.0); MCHC 32.5 g/dL (31.0-37.0); MCV 81.6 fL (80.0-100.0); Mean Platelet Volume 8.2; Monocytes # (A) 0.1 k/uL (0-1.0); Monocytes % (A) 1 %; Neutrophils # (A) 6.4 k/uL (1.3-7.7); Neutrophils % (A) 94 %; Platelet Count 190 k/uL (150-450); RBC 4.19 m/uL (3.80-5.40); RDW 13.5 % (11.5-15.5); WBC 6.9 k/uL (3.8-10.6)
--- NOTE | 2018-05-04 18:44 | P.PN ---
Subjective Progress Note Date: 05/04/18 Principal diagnosis: POD 0 vaginal cuff closure Patient is doing well, states she is feeling so much better since surgery. she denies any VB. she is tolerating a regular diet without nausea or vomitting. + flatus. + spontaneous void Objective - Vital Signs Vital signs: Vital Signs Temp 97.9 F 05/04/18 14:05 Pulse 74 05/04/18 16:50 Resp 16 05/04/18 16:50 BP 91/56 05/04/18 16:50 Pulse Ox 98 05/04/18 16:50 Intake & Output 05/03/18 05/04/18 05/04/18 18:59 06:59 18:59 Intake Total 1070 Output Total 305 Balance 765 Weight 59.421 kg Intake: IV 950 Oral 120 Output: Urine 300 Estimated Blood Loss 5 Other: Voiding Method Toilet # Voids 1 1 - Constitutional General appearance: Present: average body habitus, cooperative, no acute distress - Gastrointestinal General gastrointestinal: Present: normal bowel sounds, soft - Musculoskeletal Musculoskeletal: Present: gait normal - Psychiatric Psychiatric: Present: A&O x's 3, appropriate affect - Labs CBC & Chem 7: 05/04/18 18:15 05/04/18 08:46 Labs: Abnormal Lab Results - Last 24 Hours (Table) 05/03/18 05/03/18 05/03/18 Range/Units 22:00 22:00 22:00 WBC 11.0 H (3.8-10.6) k/uL Hgb (11.4-16.0) gm/dL Hct (34.0-46.0) % Neutrophils # 8.9 H (1.3-7.7) k/uL Lymphocytes # (1.0-4.8) k/uL Chloride 110 H (98-107) mmol/L BUN 19 H (7-17) mg/dL AST (14-36) U/L Urine Protein Trace H (Negative) Urine Blood Small H (Negative) Ur Leukocyte Esterase Moderate H (Negative) Urine RBC 11 H (0-5) /hpf Urine WBC 28 H (0-5) /hpf Urine Mucus Many H (None) /hpf 05/04/18 05/04/18 05/04/18 Range/Units 08:46 08:46 18:15 WBC (3.8-10.6) k/uL Hgb 10.5 L 11.1 L (11.4-16.0) gm/dL Hct 32.1 L (34.0-46.0) % Neutrophils # (1.3-7.7) k/uL Lymphocytes # 0.3 L (1.0-4.8) k/uL Chloride 111 H (98-107) mmol/L BUN 18 H (7-17) mg/dL AST 13 L (14-36) U/L Urine Protein (Negative) Urine Blood (Negative) Ur Leukocyte Esterase (Negative) Urine RBC (0-5) /hpf Urine WBC (0-5) /hpf Urine Mucus (None) /hpf Microbiology - Last 24 Hours (Table) 05/03/18 22:00 Urine Culture - Preliminary Urine,Voided Assessment and Plan (1) Vaginal cuff dehiscence Current Visit: Yes Status: Acute Code(s): T81.31XA - DISRUPTION OF EXTERNAL OPERATION (SURGICAL) WOUND, NEC, INIT SNOMED Code(s): 42397471 (2) Abdominal pain Current Visit: Yes Status: Acute Code(s): R10.9 - UNSPECIFIED ABDOMINAL PAIN SNOMED Code(s): 16766833 (3) Free intraperitoneal air Current Visit: Yes Status: Acute Code(s): K66.8 - OTHER SPECIFIED DISORDERS OF PERITONEUM SNOMED Code(s): 57701910 Plan: patient is doing well postoperatively, continue routine post operative care, and anticipate d/c home in the am.
[2018-05-05] MEDS: metroNIDAZOLE-NS PMX 500 MG in SALINE 1 100ML.BAG IVPB SCH ×3 (02:11→10:27)
[2018-05-05 08:10] VITALS: BP 91/58; PULSE 62; RESP 20; TEMP 97.9
--- NOTE | 2018-05-05 08:49 | P.DS ---
Providers Date of admission: 05/04/18 09:25 Expected date of discharge: 05/05/18 Attending physician: Lissette Cummings Primary care physician: Stated None - Discharge Diagnosis(es) (1) Vaginal cuff dehiscence Current Visit: Yes Status: Acute (2) Abdominal pain Current Visit: Yes Status: Acute (3) Free intraperitoneal air Current Visit: Yes Status: Acute Hospital Course: This is a very pleasant 38-year-old female that underwent robotic hysterectomy approximately 8 weeks ago. Patient was seen in the office on Thursday vaginal cuff was noted to be completely healed and patient was released to normal activities. patient then went home from the office and it during intercourse noted a severe pain followed by vaginal bleeding and loss of serous fluid. Patient was instructed to go to the emergency department on physical exam a vaginal cuff defect was noted. Patient was admitted overnight IV antibiotics were started and patient was taken to the operating suite the next day. Patient underwent vaginal cuff repair without difficulty. For further details of the surgery please see the operative report. Of note Dr. Wilkerson was consulted regarding free air noted on CAT scan done in the emergency department. Dr. Wilkerson counseled the patient as to the risks of possible bowel injury after hysterectomy, and did not feel it was necessary for diagnostic laparoscopy at this time given her symptoms. The timing of pain and free air are most likely secondary to intercourse and vaginal cuff defect. Patient's postoperative course has been uneventful. She is ambulating and voiding without difficulty. She is tolerating a regular diet without nausea or vomiting. She states she feels much better since her surgery was completed. She does wish discharge home this morning. Patient Condition at Discharge: Good Plan - Discharge Summary Discharge Rx Participant: Yes Follow up Appointment(s)/Referral(s): None,Stated [Primary Care Provider] - 1-2 days Lissette Cummings DO [Doctor of Osteopathic Medicine] - 2 Weeks Activity/Diet/Wound Care/Special Instructions: No tub baths or intercourse until released for postoperative appt. She is to call the office in addition.
[2018-05-05] MEDS: IBUPROFEN 600 MG TAB PO SCH (08:54)
[2018-05-05 10:19] LABS: Basophils % (A) 0 %; Eosinophils # (A) 0.1 k/uL (0-0.7); Eosinophils % (A) 2 %; HCT 32.1 % (34.0-46.0); HGB 10.3 gm/dL (11.4-16.0); Lymphocytes # (A) 1.3 k/uL (1.0-4.8); Lymphocytes % (A) 21 %; MCH 26.7 pg (25.0-35.0); MCHC 32.1 g/dL (31.0-37.0); MCV 83.1 fL (80.0-100.0); Mean Platelet Volume 8.3; Monocytes # (A) 0.3 k/uL (0-1.0); Monocytes % (A) 5 %; Neutrophils # (A) 4.5 k/uL (1.3-7.7); Neutrophils % (A) 72 %; Platelet Count 189 k/uL (150-450); RBC 3.86 m/uL (3.80-5.40); RDW 13.5 % (11.5-15.5); WBC 6.3 k/uL (3.8-10.6)
--- NOTE | 2018-05-05 12:40 | P.PN ---
Subjective Progress Note Date: 05/05/18 Principal diagnosis: Pneumoperitoneum Patient doing well today. She says her pain is actually better than it was in the postoperative period prior to the vaginal cuff tear. No abdominal pain presently. Tolerating diet. No tachycardia. White blood cell count normal. Objective - Vital Signs Vital signs: Vital Signs Temp 97.9 F 05/05/18 07:54 Pulse 62 05/05/18 07:54 Resp 20 05/05/18 07:54 BP 91/58 05/05/18 07:54 Pulse Ox 100 05/05/18 07:54 Intake & Output 05/04/18 05/05/18 05/05/18 18:59 06:59 18:59 Intake Total 1070 Output Total 305 600 Balance 765 -600 Intake: IV 950 Oral 120 Output: Urine 300 600 Estimated Blood Loss 5 Other: Voiding Method Toilet # Voids 1 2 1 # Bowel Movements 1 - Exam Abdomen: Soft, nontender, nondistended - Labs CBC & Chem 7: 05/05/18 09:52 05/04/18 08:46 Labs: Abnormal Lab Results - Last 24 Hours (Table) 05/04/18 05/05/18 Range/Units 18:15 09:52 Hgb 11.1 L 10.3 L (11.4-16.0) gm/dL Hct 32.1 L (34.0-46.0) % Lymphocytes # 0.3 L (1.0-4.8) k/uL Microbiology - Last 24 Hours (Table) 05/03/18 22:00 Urine Culture - Final Urine,Voided Strep agalactiae - (group b) Assessment and Plan (1) Abdominal pain Narrative/Plan: Continue diet as tolerated. Stable for discharge from my standpoint. Patient will contact us if any recurrent symptoms develop. Status: Acute Code(s): R10.9 - UNSPECIFIED ABDOMINAL PAIN SNOMED Code(s): 66926838
== END 2018-05-05 12:05 | disposition home or self-care (01) | DRG 921 ==
LOC: EC 19:52 → 6PED 05-04 01:02 → OBSVTOIN 05-04 09:25
PROVIDERS: ADMIT Obstetrics & Gynecology Obstetrics; ATTEND Obstetrics & Gynecology Obstetrics
PROC: 0UQGXZZ Repair Vagina, External Approach (ICD-10-PCS; principal; 2018-05-04 11:10)
DX: T81.30XA Disruption of wound, unspecified, initial encounter (principal); Z87.891 Personal history of nicotine dependence; Z90.710 Acquired absence of both cervix and uterus; Z88.8 Allergy status to other drugs, medicaments and biological substances; Y83.8 Other surgical procedures as the cause of abnormal reaction of the patient, or of later complication, without mention of misadventure at the time of the procedure
CPT/HCPCS: 36415; 74177; 80053; 81001; 82150; 83690; 85025; 85027; 87086; 96365; 96375; 99285